=== PATIENT | male | born 1950 | race Caucasian/White ===

== ENCOUNTER 2024-06-28 08:12 | Outpatient (CLI) | payer MEDICARE, MEDICAID | END 2024-06-28 23:59 | disposition home or self-care (01) | LOC: MRI02 08:12 | PROVIDERS: ATTEND Family Medicine Sports Medicine | DX: S43.001A Unspecified subluxation of right shoulder joint, initial encounter (principal); M75.111 Incomplete rotator cuff tear or rupture of right shoulder, not specified as traumatic; M19.011 Primary osteoarthritis, right shoulder; M75.01 Adhesive capsulitis of right shoulder; M25.711 Osteophyte, right shoulder; M25.411 Effusion, right shoulder; M67.813 Other specified disorders of tendon, right shoulder; M62.58 Muscle wasting and atrophy, not elsewhere classified, other site; M25.511 Pain in right shoulder; X58.XXXA Exposure to other specified factors, initial encounter; Y93.89 Activity, other specified; Y92.89 Other specified places as the place of occurrence of the external cause; Y99.8 Other external cause status | CPT/HCPCS: 73221 ==